=== PATIENT | male | born 1940 | race Caucasian/White ===

== ENCOUNTER 2022-06-28 22:33 | Inpatient (IN) ==
[2022-06-29] MEDS ORDERED: Acetaminophen 325 MG TABLET PO PRN (00:50)
[2022-06-29] MEDS ORDERED: Naloxone 0.4 MG/ML INJ IVP PRN ×2 (00:50→07:17)
[2022-06-29] MEDS ORDERED: Ondansetron 4 MG/2 ML VIAL IVP PRN ×2 (00:50→07:17)
[2022-06-29] MEDS ORDERED: D5% in Water 1,000 ML IVC PRN (00:54)
[2022-06-29] MEDS ORDERED: *HR* Dextrose 50 % in Water (Syg) 50 ML SYRINGE IVP PRN (00:54)
[2022-06-29] MEDS ORDERED: Dextrose Gel 15 GM/37.5 ML TUBE PO PRN ×2 (00:54)
[2022-06-29] MEDS: DilTIAZem 50 MG/50 ML IV.SOLN IVC SCH ×2 (01:28→06:03)
[2022-06-29] MEDS ORDERED: *HR* Metoprolol 5 MG/5 ML VIAL IVP ONE (03:27)
[2022-06-29 03:51] LABS: Basophils % 0.3 %; Eosinophils % 0.3 %; Hematocrit 45.8 % (37.5-50.1); Hemoglobin 14.7 g/dL (12.9-16.9); Immature Granulocytes % 0.7 % (0-4); Lymphocytes # 0.9 K/mcL (0.6-4.6); Lymphocytes % 6.4 %; Mean Corpuscular HGB Conc 32.1 g/dL (31.6-35.5); Mean Corpuscular Volume 84.2 fL (83.0-100.0); Mean Platelet Volume 9.6 fL (9.4-12.4); Monocytes # 1.6 K/mcL (0.0-1.3); Monocytes % 11.5 %; Neutrophils # 11.4 K/mcL (1.6-8.9); Platelet Count 228 K/mcL (140-400); Red Blood Count 5.44 M/mcL (4.19-5.50); Red Cell Distribution Width 16.5 % (11.5-14.5); Segmented Neutrophils % 80.8 %; White Blood Count 14.1 K/mcL (4.3-11.1)
[2022-06-29] MEDS: Ringers Solution, Lactated 1,000 ML IVC SCH ×2 (04:01→13:35)
[2022-06-29 04:02] LABS: INR 2.8; Prothrombin Time 30.7 Seconds (9.4-12.1)
[2022-06-29 04:12] LABS: Albumin 3.3 g/dL (3.5-5.7); Calcium 9.2 mg/dL (8.6-10.3); Magnesium 2.1 mg/dL (1.6-2.6); Potassium 4.1 mEq/L (3.5-5.1)
[2022-06-29 04:17] LABS: Troponin I 0.06 ng/mL (< 0.04)
[2022-06-29] MEDS ORDERED: *HR* Metoprolol 5 MG/5 ML VIAL IVP PRN ×2 (04:39→04:45)
[2022-06-29 04:44] LABS: Thyroid Stimulating Hormone 0.97 mcIU/mL (0.340-5.600)
[2022-06-29 04:57] LABS: Bilirubin,Urine Negative (Negative); Blood,Urine Large (Negative); Clarity,Urine Turbid (Clear); Color,Urine Light-Orange (Yellow); Glucose,Urine (UA) Normal (Normal); Ketones,Urine Negative (Negative); Leukocyte Esterase,Urine Moderate (Negative); Nitrite,Urine Negative (Negative); Protein,Urine 100 mg/dL (Neg-Trace); RBC,Urine TNTC per hpf (0-3); Specific Gravity,Urine 1.027 (1.010-1.025); Urobilinogen,Urine Normal (Normal); WBC,Urine 50-100 per hpf (0-3)
[2022-06-29] MEDS ORDERED: Lidocaine -MPF 2% 2 ML VIAL ONE (07:08)
[2022-06-29] MEDS ORDERED: Ondansetron 4 MG/2 ML VIAL ONE (07:08)
[2022-06-29] MEDS ORDERED: *HR* Propofol 200 MG/20 ML VIAL IVP ONE ×2 (07:08→09:37)
[2022-06-29] MEDS ORDERED: *HR* Succinylcholine 200 MG/10 ML VIAL IVP ONE (07:08)
[2022-06-29] MEDS ORDERED: *HR* FentaNYL (PF) 100 MCG/2 ML VIAL ONE (07:08)
[2022-06-29] MEDS ORDERED: *HR* FentaNYL (PF) 100 MCG/2 ML VIAL IVP PRN (07:17)
[2022-06-29] MEDS ORDERED: Nitroglycerin 0.4 MG TAB.SUBL SL PRN (07:17)
[2022-06-29] MEDS ORDERED: Albuterol 2.5 MG/3 ML NEBULIZER IH PRN (07:17)
[2022-06-29] MEDS ORDERED: Iopamidol - 300 50 ML VIAL ONE (07:24)
[2022-06-29] MEDS ORDERED: Lidocaine -MPF 4% 5 ML AMPUL ONE (07:44)
[2022-06-29] MEDS ORDERED: Acetaminophen IV 1,000 MG/100 ML BAG IVPB ONE (08:11)
[2022-06-29] MEDS ORDERED: *HR* Phenylephrine 10 MG/ML VIAL ONE (08:22)
[2022-06-29] MEDS ORDERED: Iopamidol - 370 500 ML MLS IVP ONE (08:25)
[2022-06-29] MEDS ORDERED: CeFAZolin Syr 2,000MG/20 ML 2,000 MG/20 ML SYRINGE IVPB ONE (08:30)
[2022-06-29] MEDS: Piperacillin/Tazobactam 3.375 GM in 0.9 % Sodium Chloride Mini Bag 100 ML IVPB SCH ×3 (10:00→23:13)
[2022-06-30 05:48] LABS: Basophils % 0.2 %; Eosinophils % 0.1 %; Hematocrit 36.1 % (37.5-50.1); Lymphocytes % 8.5 %; Mean Corpuscular HGB Conc 32.7 g/dL (31.6-35.5); Mean Corpuscular Hemoglobin 27.2 pg (28.0-33.3); Mean Corpuscular Volume 83.2 fL (83.0-100.0); Mean Platelet Volume 9.7 fL (9.4-12.4); Monocytes # 1.2 K/mcL (0.0-1.3); Monocytes % 9.8 %; Neutrophils # 9.4 K/mcL (1.6-8.9); Platelet Count 189 K/mcL (140-400); Red Blood Count 4.34 M/mcL (4.19-5.50); Red Cell Distribution Width 16.6 % (11.5-14.5); Segmented Neutrophils % 80.4 %; White Blood Count 11.7 K/mcL (4.3-11.1)
[2022-06-30 05:56] LABS: Hemoglobin 11.8 g/dL (12.9-16.9)
[2022-06-30 06:10] LABS: Albumin 2.8 g/dL (3.5-5.7); Bilirubin,Total 0.5 mg/dL (0.3-1.0); Calcium 8.4 mg/dL (8.6-10.3); Globulin 2.8 g/dL (2.4-3.5); Potassium 4.1 mEq/L (3.5-5.1); Total Protein 5.6 g/dL (6.4-8.9)
[2022-06-30] MEDS: Piperacillin/Tazobactam 3.375 GM in 0.9 % Sodium Chloride Mini Bag 100 ML IVPB SCH ×3 (08:07→23:49)
[2022-06-30] MEDS: Ringers Solution, Lactated 1,000 ML IVC SCH (10:15)
[2022-06-30 11:41] LABS: INR 2.4; Prothrombin Time 26.2 Seconds (9.4-12.1)
[2022-06-30] MEDS: Metoprolol XL (24 HR) Succ 50 MG TAB.ER.24H PO SCH (15:51)
[2022-06-30] MEDS ORDERED: *HR* Warfarin 3 MG TABLET PO ONE (18:00)
[2022-06-30] MEDS ORDERED: Warfarin perPT PO PRN (18:00)
[2022-07-01 03:01] LABS: Basophils % 0.2 %; Eosinophils % 0.3 %; Hematocrit 38.1 % (37.5-50.1); Hemoglobin 12.6 g/dL (12.9-16.9); Immature Granulocytes % 1.7 % (0-4); Lymphocytes # 1.3 K/mcL (0.6-4.6); Lymphocytes % 11.2 %; Mean Corpuscular HGB Conc 33.1 g/dL (31.6-35.5); Mean Corpuscular Hemoglobin 27.6 pg (28.0-33.3); Mean Corpuscular Volume 83.6 fL (83.0-100.0); Mean Platelet Volume 9.7 fL (9.4-12.4); Monocytes # 1.1 K/mcL (0.0-1.3); Monocytes % 9.6 %; Platelet Count 212 K/mcL (140-400); Red Blood Count 4.56 M/mcL (4.19-5.50); Red Cell Distribution Width 16.2 % (11.5-14.5); White Blood Count 11.7 K/mcL (4.3-11.1)
[2022-07-01 03:18] LABS: INR 1.7; Prothrombin Time 18.7 Seconds (9.4-12.1)
[2022-07-01 03:26] LABS: Albumin 2.7 g/dL (3.5-5.7); Albumin/Globulin Ratio 0.9 (1.1-2.2); Bilirubin,Total 0.6 mg/dL (0.3-1.0); Calcium 8.4 mg/dL (8.6-10.3); Globulin 2.9 g/dL (2.4-3.5); Total Protein 5.6 g/dL (6.4-8.9)
[2022-07-01] MEDS: Metoprolol XL (24 HR) Succ 50 MG TAB.ER.24H PO SCH (09:09)
[2022-07-01] MEDS: Piperacillin/Tazobactam 3.375 GM in 0.9 % Sodium Chloride Mini Bag 100 ML IVPB SCH (09:10)
[2022-07-01] MEDS: lisinopriL 20 MG TABLET PO SCH (17:27)
[2022-07-01] MEDS: Nitrofurantoin (BID) 100 MG CAPSULE PO SCH (17:28)
[2022-07-01] MEDS ORDERED: *HR* Warfarin 3 MG TABLET PO ONE (18:00)
[2022-07-02 05:03] LABS: Basophils % 0.4 %; Eosinophils # 0.1 K/mcL (0.0-0.6); Hematocrit 39.5 % (37.5-50.1); Hemoglobin 12.9 g/dL (12.9-16.9); Immature Granulocytes % 4.1 % (0-4); Lymphocytes # 1.4 K/mcL (0.6-4.6); Lymphocytes % 14.5 %; Mean Corpuscular HGB Conc 32.7 g/dL (31.6-35.5); Mean Corpuscular Hemoglobin 27.2 pg (28.0-33.3); Mean Corpuscular Volume 83.3 fL (83.0-100.0); Mean Platelet Volume 9.4 fL (9.4-12.4); Monocytes # 0.8 K/mcL (0.0-1.3); Monocytes % 8.3 %; Platelet Count 232 K/mcL (140-400); Red Blood Count 4.74 M/mcL (4.19-5.50); Red Cell Distribution Width 15.8 % (11.5-14.5); Segmented Neutrophils % 71.7 %; White Blood Count 9.8 K/mcL (4.3-11.1)
[2022-07-02 05:11] LABS: INR 1.5; Prothrombin Time 16.7 Seconds (9.4-12.1)
[2022-07-02 05:23] LABS: Calcium 8.4 mg/dL (8.6-10.3); Potassium 3.7 mEq/L (3.5-5.1)
[2022-07-02] MEDS: Aspirin Enteric Coated 325 MG Tablet PO SCH (08:34)
[2022-07-02] MEDS: lisinopriL 20 MG TABLET PO SCH (08:34)
[2022-07-02] MEDS: Nitrofurantoin (BID) 100 MG CAPSULE PO SCH ×2 (08:34→17:25)
[2022-07-02] MEDS: Metoprolol XL (24 HR) Succ 50 MG TAB.ER.24H PO SCH (08:36)
[2022-07-02] MEDS: DilTIAZem 50 MG/50 ML IV.SOLN IVC SCH (12:29)
[2022-07-02] MEDS ORDERED: *HR* Warfarin 3 MG TABLET PO ONE (18:00)
[2022-07-03 05:03] LABS: Eosinophils # 0.2 K/mcL (0.0-0.6); Hematocrit 39.6 % (37.5-50.1); Hemoglobin 12.9 g/dL (12.9-16.9); Mean Corpuscular HGB Conc 32.6 g/dL (31.6-35.5); Mean Corpuscular Hemoglobin 27.1 pg (28.0-33.3); Mean Corpuscular Volume 83.2 fL (83.0-100.0); Mean Platelet Volume 9.5 fL (9.4-12.4); Monocytes # 0.7 K/mcL (0.0-1.3); Platelet Count 260 K/mcL (140-400); Red Blood Count 4.76 M/mcL (4.19-5.50); Red Cell Distribution Width 15.6 % (11.5-14.5); White Blood Count 10.9 K/mcL (4.3-11.1)
[2022-07-03 05:07] LABS: INR 1.7; Prothrombin Time 19.2 Seconds (9.4-12.1)
[2022-07-03 05:21] LABS: Calcium 8.3 mg/dL (8.6-10.3); Potassium 3.5 mEq/L (3.5-5.1)
[2022-07-03 06:08] LABS: Lymphocytes # 2.2 K/mcL (0.6-4.6); Neutrophils # 7.6 K/mcL (1.6-8.9); Platelet Estimate Normal (Normal)
[2022-07-03] MEDS: Metoprolol XL (24 HR) Succ 50 MG TAB.ER.24H PO SCH (08:27)
[2022-07-03] MEDS: Aspirin Enteric Coated 325 MG Tablet PO SCH (08:28)
[2022-07-03] MEDS: Nitrofurantoin (BID) 100 MG CAPSULE PO SCH ×2 (08:28→17:20)
[2022-07-03] MEDS: lisinopriL 20 MG TABLET PO SCH (08:28)
[2022-07-03] MEDS ORDERED: *HR* Warfarin 3 MG TABLET PO ONE (18:00)
[2022-07-04 03:44] LABS: INR 1.9; Prothrombin Time 20.9 Seconds (9.4-12.1)
[2022-07-04] MEDS: Nitrofurantoin (BID) 100 MG CAPSULE PO SCH ×2 (08:08→17:15)
[2022-07-04] MEDS: lisinopriL 20 MG TABLET PO SCH (08:08)
[2022-07-04] MEDS: Aspirin Enteric Coated 325 MG Tablet PO SCH (08:08)
[2022-07-04] MEDS: Metoprolol XL (24 HR) Succ 50 MG TAB.ER.24H PO SCH (08:09)
[2022-07-04] MEDS: Ringers Solution, Lactated 1,000 ML IVC SCH (09:19)
[2022-07-04] MEDS ORDERED: *HR* Warfarin 3 MG TABLET PO ONE (18:00)
[2022-07-05 00:53] VITALS: BP 168/83; PULSE 80; TEMP 97.8; O2SAT 95
[2022-07-05 07:35] LABS: INR 2.7; Prothrombin Time 29.8 Seconds (9.4-12.1)
== END 2022-07-05 08:30 | disposition home or self-care (01) | DRG 853 ==
LOC: 2NENU → SUATTDRO 06-29 00:55
PROVIDERS: ADMIT Internal Medicine; ATTEND Internal Medicine

== ENCOUNTER 2022-07-06 02:52 | Observation (INO) ==
[2022-07-06] MEDS ORDERED: Ondansetron 4 MG/2 ML VIAL IVP PRN (05:27)
[2022-07-06] MEDS ORDERED: Naloxone 0.4 MG/ML INJ IVP PRN (05:27)
[2022-07-06] MEDS ORDERED: Acetaminophen 325 MG TABLET PO PRN (05:27)
[2022-07-06] MEDS ORDERED: D5% in Water 1,000 ML IVC PRN (05:30)
[2022-07-06] MEDS ORDERED: *HR* Dextrose 50 % in Water (Syg) 50 ML SYRINGE IVP PRN (05:30)
[2022-07-06] MEDS ORDERED: Dextrose Gel 15 GM/37.5 ML TUBE PO PRN ×2 (05:30)
[2022-07-06] MEDS ORDERED: Saliva Stimulant 44.3ml BOTTLE PO PRN (05:37)
[2022-07-06] MEDS: Ringers Solution, Lactated 1,000 ML IVC SCH ×2 (05:53→16:09)
[2022-07-06] MEDS: *HR* HYDROcodone/Acet 5/325 mg TABLET PO PRN ×3 (05:53→20:13)
[2022-07-06 06:35] LABS: Basophils # 0.1 K/mcL (0.0-0.2); Basophils % 0.4 %; Eosinophils # 0.1 K/mcL (0.0-0.6); Eosinophils % 0.9 %; Hematocrit 41.5 % (37.5-50.1); Hemoglobin 13.8 g/dL (12.9-16.9); Immature Granulocytes % 2.9 % (0-4); Lymphocytes # 1.6 K/mcL (0.6-4.6); Lymphocytes % 10.9 %; Mean Corpuscular HGB Conc 33.3 g/dL (31.6-35.5); Mean Corpuscular Hemoglobin 27.4 pg (28.0-33.3); Mean Corpuscular Volume 82.5 fL (83.0-100.0); Mean Platelet Volume 8.8 fL (9.4-12.4); Monocytes % 6.7 %; Neutrophils # 11.1 K/mcL (1.6-8.9); Platelet Count 371 K/mcL (140-400); Red Blood Count 5.03 M/mcL (4.19-5.50); Red Cell Distribution Width 16.1 % (11.5-14.5); Segmented Neutrophils % 78.2 %; White Blood Count 14.3 K/mcL (4.3-11.1)
[2022-07-06 06:40] LABS: INR 3.1; Prothrombin Time 34.2 Seconds (9.4-12.1)
[2022-07-06 06:42] LABS: Activated Partial Thrombo Time 43.4 Seconds (26.0-36.0)
[2022-07-06 06:51] LABS: Albumin 3.1 g/dL (3.5-5.7); Albumin/Globulin Ratio 0.9 (1.1-2.2); Bilirubin,Total 0.6 mg/dL (0.3-1.0); Calcium 8.5 mg/dL (8.6-10.3); Globulin 3.4 g/dL (2.4-3.5); Magnesium 1.8 mg/dL (1.6-2.6); Phosphorous 6.4 mg/dL (2.7-4.5); Potassium 4.2 mEq/L (3.5-5.1); Total Protein 6.5 g/dL (6.4-8.9)
[2022-07-06] MEDS: Lactobacillus 1 EACH CAP.SPRINK PO SCH ×2 (09:09→20:13)
[2022-07-06] MEDS: Piperacillin/Tazobactam 3.375 GM in 0.9 % Sodium Chloride Mini Bag 100 ML IVPB SCH ×2 (09:09→16:09)
[2022-07-06] MEDS: Nicotine 21 MG PATCH.TD24 TD SCH (09:10)
[2022-07-06] MEDS: Ipratropium/Albuterol Neb 3 ML IH SCH ×4 (10:11→22:38)
[2022-07-06] MEDS ORDERED: *HR* Metoprolol 5 MG/5 ML VIAL IVP PRN (13:30)
[2022-07-06] MEDS: Metoprolol XL (24 HR) Succ 50 MG TAB.ER.24H PO SCH (14:13)
[2022-07-06] MEDS: Melatonin 3 MG TABLET PO PRN (20:13)
[2022-07-06] MEDS ORDERED: *HR* Metoprolol 5 MG/5 ML VIAL IVP ONE (21:15)
[2022-07-07] MEDS: Piperacillin/Tazobactam 3.375 GM in 0.9 % Sodium Chloride Mini Bag 100 ML IVPB SCH ×2 (01:13→09:09)
[2022-07-07 03:12] LABS: Basophils # 0.1 K/mcL (0.0-0.2); Basophils % 0.5 %; Eosinophils # 0.2 K/mcL (0.0-0.6); Eosinophils % 1.3 %; Hematocrit 35.3 % (37.5-50.1); Lymphocytes # 1.3 K/mcL (0.6-4.6); Lymphocytes % 10.5 %; Mean Corpuscular HGB Conc 31.7 g/dL (31.6-35.5); Mean Corpuscular Hemoglobin 26.9 pg (28.0-33.3); Mean Corpuscular Volume 84.9 fL (83.0-100.0); Mean Platelet Volume 8.8 fL (9.4-12.4); Monocytes # 0.8 K/mcL (0.0-1.3); Monocytes % 6.1 %; Neutrophils # 9.8 K/mcL (1.6-8.9); Platelet Count 300 K/mcL (140-400); Red Blood Count 4.16 M/mcL (4.19-5.50); Red Cell Distribution Width 16.3 % (11.5-14.5); Segmented Neutrophils % 79.6 %; White Blood Count 12.3 K/mcL (4.3-11.1)
[2022-07-07 03:30] LABS: Calcium 8.3 mg/dL (8.6-10.3); Potassium 3.9 mEq/L (3.5-5.1)
[2022-07-07 03:31] LABS: Hemoglobin 11.2 g/dL (12.9-16.9)
[2022-07-07] MEDS: Ipratropium/Albuterol Neb 3 ML IH SCH ×3 (03:59→15:08)
[2022-07-07] MEDS: Metoprolol XL (24 HR) Succ 50 MG TAB.ER.24H PO SCH (09:29)
[2022-07-07] MEDS: Lactobacillus 1 EACH CAP.SPRINK PO SCH ×2 (09:30→20:31)
[2022-07-07] MEDS: Ampicillin 2,000 MG in 0.9 % Sodium Chloride Mini Bag 100 ML IVPB SCH ×2 (09:30→17:50)
[2022-07-07] MEDS: Nicotine 21 MG PATCH.TD24 TD SCH (09:31)
[2022-07-07] MEDS ORDERED: Ipratropium/Albuterol Neb 3 ML IH PRN (15:53)
[2022-07-07] MEDS: Melatonin 3 MG TABLET PO PRN (20:31)
[2022-07-07] MEDS: *HR* HYDROcodone/Acet 5/325 mg TABLET PO PRN (20:31)
[2022-07-08] MEDS: Ampicillin 2,000 MG in 0.9 % Sodium Chloride Mini Bag 100 ML IVPB SCH ×4 (00:50→21:34)
[2022-07-08 01:19] LABS: Basophils # 0.1 K/mcL (0.0-0.2); Basophils % 0.6 %; Eosinophils # 0.2 K/mcL (0.0-0.6); Eosinophils % 2.1 %; Hemoglobin 11.4 g/dL (12.9-16.9); Immature Granulocytes % 1.2 % (0-4); Lymphocytes # 1.9 K/mcL (0.6-4.6); Lymphocytes % 17.8 %; Mean Corpuscular HGB Conc 31.7 g/dL (31.6-35.5); Mean Corpuscular Hemoglobin 27.1 pg (28.0-33.3); Mean Corpuscular Volume 85.5 fL (83.0-100.0); Mean Platelet Volume 8.8 fL (9.4-12.4); Monocytes # 0.8 K/mcL (0.0-1.3); Monocytes % 7.7 %; Neutrophils # 7.6 K/mcL (1.6-8.9); Platelet Count 294 K/mcL (140-400); Red Blood Count 4.21 M/mcL (4.19-5.50); Red Cell Distribution Width 16.1 % (11.5-14.5); Segmented Neutrophils % 70.6 %; White Blood Count 10.7 K/mcL (4.3-11.1)
[2022-07-08 04:10] LABS: Calcium 8.5 mg/dL (8.6-10.3); Potassium 3.8 mEq/L (3.5-5.1)
[2022-07-08] MEDS: Metoprolol XL (24 HR) Succ 50 MG TAB.ER.24H PO SCH (09:48)
[2022-07-08] MEDS: Lactobacillus 1 EACH CAP.SPRINK PO SCH ×2 (09:51→21:34)
[2022-07-08] MEDS: Nicotine 21 MG PATCH.TD24 TD SCH (09:52)
[2022-07-09] MEDS: Ampicillin 2,000 MG in 0.9 % Sodium Chloride Mini Bag 100 ML IVPB SCH ×4 (05:50→21:53)
[2022-07-09 06:29] LABS: Basophils # 0.1 K/mcL (0.0-0.2); Basophils % 0.6 %; Eosinophils # 0.2 K/mcL (0.0-0.6); Eosinophils % 2.2 %; Hematocrit 37.8 % (37.5-50.1); Hemoglobin 11.8 g/dL (12.9-16.9); Lymphocytes # 1.7 K/mcL (0.6-4.6); Mean Corpuscular HGB Conc 31.2 g/dL (31.6-35.5); Mean Corpuscular Hemoglobin 26.9 pg (28.0-33.3); Mean Corpuscular Volume 86.3 fL (83.0-100.0); Mean Platelet Volume 9.1 fL (9.4-12.4); Monocytes # 0.7 K/mcL (0.0-1.3); Monocytes % 8.4 %; Neutrophils # 6.1 K/mcL (1.6-8.9); Platelet Count 320 K/mcL (140-400); Red Blood Count 4.38 M/mcL (4.19-5.50); Red Cell Distribution Width 15.8 % (11.5-14.5); Segmented Neutrophils % 68.8 %; White Blood Count 8.8 K/mcL (4.3-11.1)
[2022-07-09 06:34] LABS: BUN/Creatinine Ratio 24 (6-26); Blood Urea Nitrogen 19 mg/dL (8-23); Calcium 8.4 mg/dL (8.6-10.3); Carbon Dioxide 23 mEq/L (23-29); Chloride 101 mEq/L (98-107); Glucose 96 mg/dL (70-105); Osmolality,Calculated 278 (280-300); Potassium 3.5 mEq/L (3.5-5.1); Sodium 133 mEq/L (136-145)
[2022-07-09] MEDS: Metoprolol XL (24 HR) Succ 50 MG TAB.ER.24H PO SCH (09:52)
[2022-07-09] MEDS: Lactobacillus 1 EACH CAP.SPRINK PO SCH ×2 (09:53→21:53)
[2022-07-09] MEDS: *HR* HYDROcodone/Acet 5/325 mg TABLET PO PRN (09:53)
[2022-07-09] MEDS: Nicotine 21 MG PATCH.TD24 TD SCH (09:53)
[2022-07-09] MEDS ORDERED: *HR* Propofol 200 MG/20 ML VIAL IVP ONE (10:14)
[2022-07-09] MEDS ORDERED: *HR* FentaNYL (PF) 100 MCG/2 ML VIAL ONE (10:14)
[2022-07-09] MEDS ORDERED: Lidocaine -MPF 2% 2 ML VIAL ONE (10:14)
[2022-07-09] MEDS ORDERED: Ondansetron 4 MG/2 ML VIAL ONE (10:14)
[2022-07-09 10:15] LABS: INR 1.6; Prothrombin Time 17.4 Seconds (9.4-12.1)
[2022-07-09] MEDS ORDERED: Iopamidol - 300 50 ML VIAL ONE (10:41)
[2022-07-09] MEDS ORDERED: *HR* FentaNYL (PF) 100 MCG/2 ML VIAL IVP PRN (11:30)
[2022-07-09] MEDS ORDERED: Ondansetron 4 MG/2 ML VIAL IVP PRN (11:30)
[2022-07-09] MEDS ORDERED: EPHEDrine sulfate 50 MG/10 ML VIAL IVP ONE (11:45)
[2022-07-09] MEDS ORDERED: *HR* OxyCODONE Immed Rel 5 MG TABLET PO PRN (13:20)
[2022-07-09] MEDS: *HR* OxyCODONE Immed Rel 5 MG TABLET PO PRN (17:43)
[2022-07-10 03:10] LABS: Basophils % 0.1 %; Hematocrit 37.8 % (37.5-50.1); Hemoglobin 11.9 g/dL (12.9-16.9); Lymphocytes # 0.7 K/mcL (0.6-4.6); Lymphocytes % 9.8 %; Mean Corpuscular HGB Conc 31.5 g/dL (31.6-35.5); Mean Corpuscular Volume 85.9 fL (83.0-100.0); Mean Platelet Volume 8.7 fL (9.4-12.4); Monocytes # 0.3 K/mcL (0.0-1.3); Monocytes % 4.8 %; Platelet Count 318 K/mcL (140-400); Red Cell Distribution Width 15.5 % (11.5-14.5); Segmented Neutrophils % 84.3 %; White Blood Count 7.1 K/mcL (4.3-11.1)
[2022-07-10 03:45] LABS: BUN/Creatinine Ratio 28 (6-26); Blood Urea Nitrogen 22 mg/dL (8-23); Calcium 8.5 mg/dL (8.6-10.3); Carbon Dioxide 24 mEq/L (23-29); Chloride 101 mEq/L (98-107); Glucose 161 mg/dL (70-105); Osmolality,Calculated 281 (280-300); Potassium 3.8 mEq/L (3.5-5.1); Sodium 132 mEq/L (136-145)
[2022-07-10] MEDS: Ampicillin 2,000 MG in 0.9 % Sodium Chloride Mini Bag 100 ML IVPB SCH (04:04)
[2022-07-10] MEDS: Nicotine 21 MG PATCH.TD24 TD SCH (07:56)
[2022-07-10] MEDS: Metoprolol XL (24 HR) Succ 50 MG TAB.ER.24H PO SCH (07:56)
[2022-07-10] MEDS: Lactobacillus 1 EACH CAP.SPRINK PO SCH ×2 (07:56→21:42)
[2022-07-10] MEDS: *HR* OxyCODONE Immed Rel 5 MG TABLET PO PRN (07:56)
[2022-07-10 10:20] LABS: INR 1.5; Prothrombin Time 16.4 Seconds (9.4-12.1)
[2022-07-10] MEDS ORDERED: Warfarin perPT PO PRN ×2 (18:00→19:06)
[2022-07-10] MEDS ORDERED: *HR* Warfarin 3 MG TABLET PO ONE (18:00)
[2022-07-10] MEDS ORDERED: Saliva Stimulant 44.3ml BOTTLE PO PRN (19:06)
[2022-07-10] MEDS ORDERED: D5% in Water 1,000 ML IVC PRN (19:06)
[2022-07-10] MEDS ORDERED: Ipratropium/Albuterol Neb 3 ML IH PRN (19:06)
[2022-07-10] MEDS ORDERED: *HR* OxyCODONE Immed Rel 5 MG TABLET PO PRN (19:06)
[2022-07-10] MEDS ORDERED: Dextrose Gel 15 GM/37.5 ML TUBE PO PRN ×2 (19:06)
[2022-07-10] MEDS ORDERED: Naloxone 0.4 MG/ML INJ IVP PRN (19:06)
[2022-07-10] MEDS ORDERED: Melatonin 3 MG TABLET PO PRN (19:06)
[2022-07-10] MEDS ORDERED: *HR* Dextrose 50 % in Water (Syg) 50 ML SYRINGE IVP PRN (19:06)
[2022-07-10] MEDS ORDERED: Acetaminophen 325 MG TABLET PO PRN (19:06)
[2022-07-10] MEDS ORDERED: *HR* Metoprolol 5 MG/5 ML VIAL IVP PRN (19:06)
[2022-07-11 03:01] LABS: Basophils % 0.2 %; Eosinophils # 0.1 K/mcL (0.0-0.6); Eosinophils % 1.4 %; Hematocrit 33.7 % (37.5-50.1); Hemoglobin 10.7 g/dL (12.9-16.9); Immature Granulocytes % 0.7 % (0-4); Lymphocytes # 1.9 K/mcL (0.6-4.6); Lymphocytes % 22.7 %; Mean Corpuscular HGB Conc 31.8 g/dL (31.6-35.5); Mean Corpuscular Hemoglobin 27.2 pg (28.0-33.3); Mean Corpuscular Volume 85.8 fL (83.0-100.0); Mean Platelet Volume 8.9 fL (9.4-12.4); Monocytes # 0.7 K/mcL (0.0-1.3); Monocytes % 8.6 %; Neutrophils # 5.5 K/mcL (1.6-8.9); Platelet Count 273 K/mcL (140-400); Red Blood Count 3.93 M/mcL (4.19-5.50); Red Cell Distribution Width 15.5 % (11.5-14.5); Segmented Neutrophils % 66.4 %; White Blood Count 8.3 K/mcL (4.3-11.1)
[2022-07-11 03:04] LABS: INR 1.3; Prothrombin Time 14.3 Seconds (9.4-12.1)
[2022-07-11 03:22] LABS: BUN/Creatinine Ratio 32 (6-26); Blood Urea Nitrogen 25 mg/dL (8-23); Calcium 8.3 mg/dL (8.6-10.3); Carbon Dioxide 23 mEq/L (23-29); Chloride 102 mEq/L (98-107); Glucose 123 mg/dL (70-105); Osmolality,Calculated 282 (280-300); Potassium 3.5 mEq/L (3.5-5.1); Sodium 133 mEq/L (136-145)
[2022-07-11] MEDS: Nicotine 21 MG PATCH.TD24 TD SCH (08:11)
[2022-07-11] MEDS: Metoprolol XL (24 HR) Succ 50 MG TAB.ER.24H PO SCH (08:12)
[2022-07-11] MEDS: Lactobacillus 1 EACH CAP.SPRINK PO SCH ×2 (08:12→22:01)
[2022-07-11] MEDS ORDERED: *HR* Warfarin 3 MG TABLET PO ONE (18:00)
[2022-07-12 05:00] LABS: Basophils % 0.4 %; Eosinophils # 0.2 K/mcL (0.0-0.6); Eosinophils % 2.8 %; Hematocrit 34.6 % (37.5-50.1); Hemoglobin 11.3 g/dL (12.9-16.9); Immature Granulocytes % 0.7 % (0-4); Lymphocytes # 1.8 K/mcL (0.6-4.6); Mean Corpuscular HGB Conc 32.7 g/dL (31.6-35.5); Mean Corpuscular Hemoglobin 27.7 pg (28.0-33.3); Mean Corpuscular Volume 84.8 fL (83.0-100.0); Mean Platelet Volume 8.8 fL (9.4-12.4); Monocytes # 0.7 K/mcL (0.0-1.3); Monocytes % 9.7 %; Neutrophils # 4.7 K/mcL (1.6-8.9); Platelet Count 245 K/mcL (140-400); Red Blood Count 4.08 M/mcL (4.19-5.50); Red Cell Distribution Width 15.5 % (11.5-14.5); Segmented Neutrophils % 62.4 %; White Blood Count 7.5 K/mcL (4.3-11.1)
[2022-07-12 05:07] LABS: INR 1.4; Prothrombin Time 15.9 Seconds (9.4-12.1)
[2022-07-12 05:20] LABS: BUN/Creatinine Ratio 25 (6-26); Blood Urea Nitrogen 19 mg/dL (8-23); Calcium 8.3 mg/dL (8.6-10.3); Carbon Dioxide 25 mEq/L (23-29); Chloride 102 mEq/L (98-107); Glucose 98 mg/dL (70-105); Osmolality,Calculated 280 (280-300); Potassium 3.5 mEq/L (3.5-5.1); Sodium 134 mEq/L (136-145)
[2022-07-12] MEDS: Lactobacillus 1 EACH CAP.SPRINK PO SCH ×2 (08:34→22:21)
[2022-07-12] MEDS: Metoprolol XL (24 HR) Succ 50 MG TAB.ER.24H PO SCH (08:34)
[2022-07-12] MEDS: Nicotine 21 MG PATCH.TD24 TD SCH (08:35)
[2022-07-12] MEDS: Ampicillin/Sulbactam 1,500 MG in 0.9 % Sodium Chloride Mini Bag 100 ML IVPB SCH ×3 (11:47→23:52)
[2022-07-12] MEDS ORDERED: *HR* Warfarin 7.5 MG TABLET PO ONE (18:00)
[2022-07-12 19:07] LABS: Adenovirus F 40/41 PCR Not detected (Not detect); Astrovirus PCR Not detected (Not detect); C.difficile Toxin A/B Gene PCR Not detected (Not detect); Campylobacter by PCR Not detected (Not detect); Cryptosporidium by PCR Not detected (Not detect); Cyclospora cayetanensis PCR Not detected (Not detect); Entamoeba histolytica PCR Not detected (Not detect); Enteroaggregative E.coli(EAEC) Not detected (Not detect); Enteropathogenic E.coli(EPEC) Not detected (Not detect); Enterotoxigenic E.coli (ETEC) Not detected (Not detect); Giardia lamblia PCR Not detected (Not detect); Norovirus GI/GII PCR Not detected (Not detect); Plesiomonas shigelloides PCR Not detected (Not detect); Rotavirus A PCR Not detected (Not detect); Salmonella PCR Not detected (Not detect); Sapovirus PCR Not detected (Not detect); Shig/EnteroinvasiveE coli EIEC Not detected (Not detect); Shigalike tox-prod E coli STEC Not detected (Not detect); Vibrio PCR Not detected (Not detect); Vibrio cholerae PCR Not detected (Not detect); Yersinia enterocolitica PCR Not detected (Not detect)
[2022-07-13 04:39] LABS: Basophils # 0.1 K/mcL (0.0-0.2); Basophils % 0.8 %; Eosinophils # 0.2 K/mcL (0.0-0.6); Eosinophils % 3.1 %; Hematocrit 34.6 % (37.5-50.1); Immature Granulocytes % 0.6 % (0-4); Lymphocytes # 1.9 K/mcL (0.6-4.6); Lymphocytes % 24.6 %; Mean Corpuscular HGB Conc 31.8 g/dL (31.6-35.5); Mean Corpuscular Hemoglobin 27.2 pg (28.0-33.3); Mean Corpuscular Volume 85.6 fL (83.0-100.0); Mean Platelet Volume 8.7 fL (9.4-12.4); Monocytes # 0.7 K/mcL (0.0-1.3); Monocytes % 8.6 %; Neutrophils # 4.9 K/mcL (1.6-8.9); Platelet Count 223 K/mcL (140-400); Red Blood Count 4.04 M/mcL (4.19-5.50); Red Cell Distribution Width 15.7 % (11.5-14.5); Segmented Neutrophils % 62.3 %; White Blood Count 7.8 K/mcL (4.3-11.1)
[2022-07-13 04:51] LABS: INR 1.7; Prothrombin Time 18.5 Seconds (9.4-12.1)
[2022-07-13 04:57] LABS: BUN/Creatinine Ratio 27 (6-26); Blood Urea Nitrogen 20 mg/dL (8-23); Calcium 8.1 mg/dL (8.6-10.3); Carbon Dioxide 26 mEq/L (23-29); Chloride 101 mEq/L (98-107); Glucose 170 mg/dL (70-105); Osmolality,Calculated 287 (280-300); Potassium 3.6 mEq/L (3.5-5.1); Sodium 135 mEq/L (136-145)
[2022-07-13] MEDS: Ampicillin/Sulbactam 1,500 MG in 0.9 % Sodium Chloride Mini Bag 100 ML IVPB SCH ×2 (06:45→14:19)
[2022-07-13] MEDS: Metoprolol XL (24 HR) Succ 50 MG TAB.ER.24H PO SCH (08:27)
[2022-07-13] MEDS: Nicotine 21 MG PATCH.TD24 TD SCH (08:27)
[2022-07-13] MEDS: Lactobacillus 1 EACH CAP.SPRINK PO SCH (08:27)
[2022-07-13 16:01] VITALS: BP 145/77; PULSE 82; TEMP 98.7; O2SAT 94
[2022-07-13] MEDS ORDERED: *HR* Warfarin 3 MG TABLET PO ONE (18:00)
== END 2022-07-13 16:34 ==
LOC: 2ANU → SUATTDRO 05:04
PROVIDERS: ADMIT Internal Medicine; ATTEND Internal Medicine